=== PATIENT | female | born 1995 | race Caucasian/White ===

== ENCOUNTER 2021-12-22 21:50 | Emergency (ER) | payer SELFPAY ==
[~2021-12-22] VITALS: Ht 172.7 cm; Wt 90.7 kg
[2021-12-22 21:58] VITALS: BP 131/70
== END 2021-12-22 23:16 | disposition home or self-care (01) ==
LOC: ER 21:54
DX: S89.91XA Unspecified injury of right lower leg, initial encounter (principal); W19.XXXA Unspecified fall, initial encounter; Y93.89 Activity, other specified; Y92.89 Other specified places as the place of occurrence of the external cause; Y99.8 Other external cause status
CPT/HCPCS: 73564-TC

== ENCOUNTER 2023-08-26 21:27 | Emergency (ER) | payer MEDICAID, OTHER ==
[~2023-08-26] VITALS: Ht 175.3 cm; Wt 86.2 kg
[2023-08-26 21:57] LABS: BASOPHILS # (AUTO) 0.1 K/uL (0.0-0.2); BASOPHILS % (AUTO) 1.1 % (0.0-2.0); EOSINOPHILS % (AUTO) 0.9 % (0.0-6.0); HEMATOCRIT 40 % (33-45); HEMOGLOBIN 12.7 g/dL (11.5-14.8); LYMPHOCYTES # (AUTO) 2.6 K/uL (0.8-4.8); LYMPHOCYTES % (AUTO) 49.7 % (20.0-44.0); MEAN CORPUSCULAR HEMOGLOBIN 27 PG (26.0-33.0); MEAN CORPUSCULAR HGB CONC 32 g/dl (31.0-36.0); MEAN CORPUSCULAR VOLUME 85 fL (82-100); MONOCYTES # (AUTO) 0.5 K/uL (0.1-1.30); MONOCYTES % (AUTO) 10.4 % (2.0-12.0); NEUTROPHILS % (AUTO) 37.9 % (43.0-81.0); PLATELET COUNT (AUTO) 449 K/uL (150-450); RED BLOOD CELL COUNT(AUTO) 4.66 MIL/uL (4.0-5.2); RED CELL DISTRIBUTION WIDTH 18.2 % (11.5-15.0); WHITE BLOOD COUNT (AUTO) 5.2 K/uL (4.3-11.0)
[2023-08-26 22:07] LABS: CALCIUM, SERUM 9.1 mg/dL (8.5-10.1); CARBON DIOXIDE 19 mmol/L (21-32); CHLORIDE 103 mmol/L (98-107); CREATININE 0.9 mg/dL (0.6-1.3); GLUCOSE 97 mg/dL (74-106); POTASSIUM 3.9 mmol/L (3.5-5.1); SODIUM SERUM 140 mmol/L (136-145); UREA NITROGEN, BLOOD 4 mg/dL (7-18)
[2023-08-26 22:21] LABS: ALANINE AMINOTRANSFERASE 19 U/L (12-78); ALBUMIN 3.9 g/dL (3.4-5.0); ALCOHOL, BLOOD 193 mg/dL (0-10); ALKALINE PHOSPHATASE 104 U/L (46-116); ASPARTATE AMINOTRANSFERASE 19 U/L (15-37); BILIRUBIN,DIRECT 0.1 mg/dL (0.0-0.2); BILIRUBIN,TOTAL 0.3 mg/dL (0.2-1.0); TOTAL PROTEIN, SERUM 8.6 g/dL (6.4-8.2)
[2023-08-26 22:25] LABS: SALICYLATE 1.8 mg/dL (2.8-20.0)
[2023-08-26 22:26] LABS: ACETAMINOPHEN <10 ug/ml (10-30)
[2023-08-26] MEDS ORDERED: LIDOCAINE 1%-EPI 1:100,000 20 ML VIAL ONE (22:28)
[2023-08-26] MEDS: LIDOCAINE 1%-EPI 1:100,000 20 ML VIAL TP ONE (22:30)
[2023-08-26 22:35] LABS: APPEARANCE,URINE CLEAR (CLEAR); BILIRUBIN,URINE NEGATIVE (NEGATIVE); BLOOD, URINE 1+ Ery/uL (NEGATIVE); COLOR,URINE YELLOW (YELLOW); KETONES,URINE NEGATIVE (NEGATIVE); LEUKOCYTE ESTERASE ,URINE NEGATIVE (NEGATIVE); NITRITE, URINE NEGATIVE (NEGATIVE); PH,URINE 6.5 (5.0-8.0); PROTEIN,URINE NEGATIVE (NEGATIVE); UGLUCOSE NEGATIVE (NEGATIVE); UROBILINOGEN,URINE 0.2 EU/dL (0.2)
[2023-08-26 22:40] LABS: WBC,URINE 0-2 /HPF (0-3)
[2023-08-26 22:41] LABS: ADD URINE CULTURE NO; BACTERIA,URINE Few /HPF (None Seen); SQUAMOUS EPITHELIAL CELL,UR Few /HPF (None Seen)
[2023-08-26 22:42] LABS: AMPHETAMINE, URINE NEGATIVE (NEGATIVE); BARBITURATE, URINE NEGATIVE (NEGATIVE); BENZODIAZEPINE, URINE NEGATIVE (NEGATIVE); OPIATE, URINE NEGATIVE (NEGATIVE); PHENCYCLIDINE SCREEN,URINE NEGATIVE (NEGATIVE); PREGNANCY TEST URINE QUAL NEGATIVE (NEGATIVE)
[2023-08-26 22:48] LABS: CANNABINOID, URINE POSITIVE (NEGATIVE); COCCAINE, URINE POSITIVE (NEGATIVE)
[2023-08-27] MEDS ORDERED: ACETAMINOPHEN ES 500 MG TABLET ONE (05:50)
[2023-08-27] MEDS: ACETAMINOPHEN ES 500 MG TABLET PO ONE (05:51)
[2023-08-27 15:04] VITALS: BP 118/71; TEMP 98.1; O2SAT 98
== END 2023-08-27 15:06 ==
LOC: ER 21:29
DX: S61.512A Laceration without foreign body of left wrist, initial encounter (principal); F10.129 Alcohol abuse with intoxication, unspecified; R10.2 Pelvic and perineal pain; Z20.822 Contact with and (suspected) exposure to COVID-19; X78.1XXA Intentional self-harm by knife, initial encounter; Y93.89 Activity, other specified; Y92.89 Other specified places as the place of occurrence of the external cause; Y99.8 Other external cause status; Y90.6 Blood alcohol level of 120-199 mg/100 ml
CPT/HCPCS: 36415; 80048-TC; 80076-TC; 81001; 84703-TC; 85025-TC; A6403; G0480; J3490

== ENCOUNTER 2024-11-29 14:40 | Emergency (ER) | payer MEDICAID, OTHER ==
[~2024-11-29] VITALS: Ht 175.3 cm; Wt 44.5 kg
[2024-11-29 15:16] LABS: PLATELET COUNT (AUTO) 440 K/uL (150-450); RED BLOOD CELL COUNT(AUTO) 4.48 MIL/uL (4.0-5.2); RED CELL DISTRIBUTION WIDTH 16.5 % (11.5-15.0); WHITE BLOOD COUNT (AUTO) 10.6 K/uL (4.3-11.0)
[2024-11-29 15:26] LABS: CALCIUM, SERUM 8.9 mg/dL (8.5-10.1); CREATININE 1.2 mg/dL (0.6-1.3); SODIUM SERUM 133.0 mmol/L (136-145); UREA NITROGEN, BLOOD 7.0 mg/dL (7-18)
[2024-11-29] MEDS: LORAZEPAM INJ 2 MG/ML VIAL IV ONE (15:45)
[2024-11-29] MEDS: IV NS 0.9% 1,000 ML BAG IV ONE (15:53)
[2024-11-29] MEDS ORDERED: LORAZEPAM INJ 2 MG/ML VIAL ONE (15:55)
[2024-11-29] MEDS ORDERED: POTASSIUM CL. PREMIX PERIPHER. 50 ML ONE (15:57)
[2024-11-29] MEDS ORDERED: POTASSIUM CHLORIDE 20 MEQ TAB.PRT.SR PO ONE (15:57)
[2024-11-29] MEDS ORDERED: Magnesium 1GM/D5W 100ML PREMIX 100 ML IV ONE (15:57)
[2024-11-29] MEDS: Magnesium 1 GM/2 ML VIAL IV ONE (16:19)
[2024-11-29] MEDS: POTASSIUM CHLORIDE 20 MEQ TAB.PRT.SR PO ONE (16:20)
[2024-11-29] MEDS: POTASSIUM CHLORIDE 10 MEQ/50 ML PREMIXED IVPB FOR PERIPHERAL LINE IV ONE (16:21)
[2024-11-29 17:51] VITALS: BP 121/71; TEMP 98; O2SAT 98
[2024-11-29 18:22] LABS: APPEARANCE,URINE CLEAR (CLEAR); BLOOD, URINE 1+ Ery/uL (NEGATIVE); LEUKOCYTE ESTERASE ,URINE NEGATIVE (NEGATIVE); NITRITE, URINE NEGATIVE (NEGATIVE); UGLUCOSE NEGATIVE (NEGATIVE)
[2024-11-29 18:26] LABS: PREGNANCY TEST URINE QUAL NEGATIVE (NEGATIVE)
[2024-11-29 18:37] LABS: ADD URINE CULTURE NO; SQUAMOUS EPITHELIAL CELL,UR 0-2 /HPF (None Seen)
== END 2024-11-29 17:53 | disposition home or self-care (01) ==
LOC: ER 14:47
DX: F41.9 Anxiety disorder, unspecified (principal); E87.6 Hypokalemia; R20.0 Anesthesia of skin
CPT/HCPCS: 99285; 96365; 71045; 96375; 96368; 93005; 85025; 80048; 83735; 84703; 81001; 36415; J2060; J7030; J3480; A4223; J3475